=== PATIENT | male | born 2000 | race Caucasian/White ===

== ENCOUNTER 2021-05-06 10:50 | Day surgery (SDC) | payer OTHER ==
[~2021-05-06] VITALS: Ht 177.8 cm; Wt 84.4 kg
[~2021-05-06 10:50] MED LIST: fentaNYL 100 MCG/2 ML INJECTION IV PRN
[2021-05-06] MEDS ORDERED: LIDOCAINE 1% MDV 20ML VIAL As Ordered ONE (12:45)
[2021-05-06] MEDS ORDERED: EPINEPHrine 1MG/ML INJ 30ML MD-VIAL As Ordered ONE (12:45)
[2021-05-06] MEDS ORDERED: propofoL 200 MG/20 ML VIAL As Ordered ONE (13:12)
[2021-05-06] MEDS ORDERED: MIDAZOLAM INJ 2MG/2ML VIAL (J2250 PER 1MG) As Ordered ONE (13:12)
[2021-05-06] MEDS ORDERED: ROCURONIUM BROMIDE 50 MG/5 ML VIAL As Ordered ONE ×2 (13:12→14:59)
[2021-05-06] MEDS ORDERED: dexameTHASONE 4 MG/ML 1ML VIAL (J1100 PER 1MG) As Ordered ONE (13:12)
[2021-05-06] MEDS ORDERED: fentaNYL 100 MCG/2 ML INJECTION As Ordered ONE (13:12)
[2021-05-06] MEDS ORDERED: ONDANSETRON 4MG/2ML VIAL As Ordered ONE (13:12)
[2021-05-06] MEDS ORDERED: LIDOCAINE 2% 100MG/5ML SDV (FOR ANES.) As Ordered ONE (13:12)
[2021-05-06] MEDS ORDERED: LIDOCAINE 1% MDV 20ML VIAL XX ONE (13:45)
[2021-05-06] MEDS ORDERED: ROPIvacaine 0.5% 30ML INJECTION (J2795 PER 1MG) XX ONE (13:45)
[2021-05-06] MEDS ORDERED: EPINEPHrine INJ 1 MG/ML 1ML AMP XX ONE (13:45)
[2021-05-06] MEDS ORDERED: ceFAZolin 2 GM/D5W 50 ML IV BAG (J0690 PER 500MG) As Ordered ONE (13:47)
[2021-05-06] MEDS: MIDAZOLAM INJ 2MG/2ML VIAL (J2250 PER 1MG) IV PRN ×2 (14:00→14:01)
[2021-05-06] MEDS: TRANEXAMIC ACID 100 MG/ML 10ML VIAL As Ordered ONE (14:35)
[2021-05-06] MEDS ORDERED: PHENYLephrine 500MCG 5ML (100MCG/ML) SYRINGE As Ordered ONE (14:42)
[2021-05-06] MEDS ORDERED: SUGAMMADEX SODIUM 500 MG/5 ML VIAL (BRIDION) As Ordered ONE (16:40)
[2021-05-06 18:12] VITALS: BP 139/67
== END 2021-05-06 18:20 | disposition home or self-care (01) ==
LOC: M SDC 10:50
PROVIDERS: ATTEND Orthopaedic Surgery
DX: S43.112A Subluxation of left acromioclavicular joint, initial encounter (principal); V00.311A Fall from snowboard, initial encounter; Y93.23 Activity, snow (alpine) (downhill) skiing, snowboarding, sledding, tobogganing and snow tubing; Y92.89 Other specified places as the place of occurrence of the external cause; Y99.9 Unspecified external cause status
CPT/HCPCS: 29827; 64415; 76000; C1713; J0171; J0690; J1100; J2250; J2370; J2405; J3010